=== PATIENT | male | born 1975 | race Caucasian/White ===

== ENCOUNTER 2017-05-09 09:32 | Emergency (ER) | payer OTHER ==
[~2017-05-09 09:32] MED LIST: Lidocaine 1% with EPINEPHrine 1:100,000 20 ML MDV INFILT ONE
[2017-05-09] MEDS ORDERED: Cephalexin 500 MG Cap PO SCH (12:00)
--- NOTE | 2017-05-11 16:16 | ER ---
DATE SEEN: 05/09/2017 TIME SEEN: The patient was seen at 0948 hours in the morning. CHIEF COMPLAINT: Laceration, left dominant index finger mid phalanx by a piece of metal while working at [employer]. HISTORY OF PRESENT ILLNESS: Forest is a 42-year-old smoker accidentally cut his left dominant hand index finger with a piece of metal piece , dominant finger. ALLERGIES: None. MEDICATIONS: None. SOCIAL HISTORY: Smoker half to a pack of cigarettes per day. REVIEW OF SYSTEMS: Negative. PHYSICAL EXAMINATION: Focused specific examination: HEENT: Negative. LUNGS: Clear without rales. HEART: S1 and S2. No murmur. ABDOMEN: Soft. EXTREMITIES: Negative except for he bites his fingernails. They are foreshortened in both hands. EMERGENCY DEPARTMENT COURSE: Left mid index finger radial 1.5-cm laceration. Wound was cleansed under the sink vigorously with a surgical sponge and then injected with lidocaine 1% with epi, and then closed with 1 stitch of 4-0 Ethilon. The patient tolerated the procedure well. His tetanus is up to date. PLAN: 1. The patient given Keflex 500 mg 1 q.i.d. 40 tablets. Use Nicorette lozenges and NicoDerm. He currently has a "pill" he is unsuccessfully using for smoking cessation. 2. Obesity. 3. Previous knee surgery. 4. The patient is to follow up with doctor in 7 to 14 days, earlier if worse. /[id number] KHALIDA/EMERALD VANG
== END 2017-05-09 10:50 | disposition home or self-care (01) ==
LOC: FB.ED 09:32
DX: S61.211A Laceration without foreign body of left index finger without damage to nail, initial encounter (principal); F17.210 Nicotine dependence, cigarettes, uncomplicated; Z98.890 Other specified postprocedural states; W45.8XXA Other foreign body or object entering through skin, initial encounter
CPT/HCPCS: 12001; 99000; 99282